=== PATIENT | male | born 1940 | race American Indian/Alaskan Native ===

== ENCOUNTER 2018-08-30 20:39 | Emergency (ER) | payer MEDICARE, OTHER ==
[~2018-08-30 20:39] MED LIST: ADRENALIN ONE
--- NOTE | 2018-08-30 20:51 | Emergency Department Report ---
ED CPR HPI - General Stated Complaint: CARDIAC ARREST Time Seen by Provider: 08/30/18 20:44 - History of Present Illness Initial Comments: Patient is 78 years old male, [facility] patient with history of chronic respiratory failure with tracheostomy. Patient brought to the emergency room in full cardiac arrest. EMS stated that they received the call around 8:03 PM. Per EMS report [facility] staff stated that patient was last seen normal was 8:00 PM. EMS system and the patient removed his tracheostomy. EMS stated that patient was not breathing and his tracheostomy was out. Patient immediately intubated by EMS. ACLS protocol initiated by EMS and continued. The patient initial rhythm was asystole and patient continued to be in asystole. Patient received 3 mg of epinephrine in route to the ER and also 1 sodium bicarbonate. Upon arrival to the ER, ET tube confirmed by me with good breath sounds both sides. Patient rhythm continued to be asystole. Patient pronounced at 08:43 p.m. total resuscitation time is 40 minutes. For more information please refer to code sheet. Complaint: found unresponsive Onset/Timin Place: [place]/[facility] Bystander CPR Performed: Yes Shock Advised: No Initial Findings in the Field: unresponsive, no respirations, no pulse, systole ROSC in the Field: No Associated Injuries: No Treatments Prior to Arrival: intubation, epinephrine mgs # (3), sodium bicarbonate (1) ED Review of Systems ROS: Stated complaint: CARDIAC ARREST Other details as noted in HPI Comment: Unobtainable due to pts medical conditions ED Physical Exam - General General appearance: other (intubated) - Head Head exam: Present: atraumatic - Eye Pupils: Present: other (4 mm pupils b/l , non-reactive) - Neck Neck exam: Present: other (ET Tube in place through tracheostomy) - Respiratory Respiratory exam: Present: other - Cardiovascular Cardiovascular Exam: Present: other (CPR IN PROGRESS) - GI/Abdominal GI/Abdominal exam: Present: soft. Absent: distended - Neurological Exam Neurological exam: Present: other (CPR IN PROGRESS) ED Medical Decision Making - Medical Decision Making Patient is 78 years old male, [facility] patient with history of chronic respiratory failure with tracheostomy. Patient brought to the emergency room in full cardiac arrest. EMS stated that they received the call around 8:03 PM. Per EMS report [facility] staff stated that patient was last seen normal was 8:00 PM. EMS system and the patient removed his tracheostomy. EMS stated that patient was not breathing and his tracheostomy was out. Patient immediately intubated by EMS. ACLS protocol initiated by EMS and continued. The patient initial rhythm was asystole and patient continued to be in asystole. Patient received 3 mg of epinephrine in route to the ER and also 1 sodium bicarbonate. Upon arrival to the ER, ET tube confirmed by me with good breath sounds both sides. Patient rhythm continued to be asystole. Patient pronounced at 08:43 p.m. total resuscitation time is 40 minutes. For more information please refer to code sheet. Patient daughter arrived. Patient daughter stated that she saw her father today and he was doing very well and asked if he can go home with her. She stated that he was [facility] recently to this [facility] for [facility] after he sustained a stroke or a possible seizure. Daughter inform about her father . Critical Care Time: Yes Critical care time in (mins) excluding proc time.: 30 Critical care attestation.: If time is entered above; I have spent that time in minutes in the direct care of this critically ill patient, excluding procedure time. ED Disposition Clinical Impression: Cardiopulmonary arrest Disposition: [id number] Is pt being admited?: No Condition: Stable
== END 2018-08-31 00:20 ==
LOC: ED 20:39
DX: I46.9 Cardiac arrest, cause unspecified (principal)
CPT/HCPCS: 92950; 99285; J0171